=== PATIENT | female | born 1935 | race Caucasian/White ===

== ENCOUNTER 2020-11-23 17:04 | Inpatient (IN) | payer MEDICARE ==
[2020-11-23] MEDS: Atorvastatin Calcium 10 MG TAB PO SCH (21:02)
[2020-11-23] MEDS: Apixaban 5 MG TAB PO SCH (21:02)
[2020-11-24 06:13] LABS: Anion Gap 12 mmol/L (10-20); BUN (Urea Nitrogen) 14 mg/dL (9.8-20.1); Calc. Creatinine Clearance 77 mL/min (70-130); Calcium 9.2 mg/dL (7.8-10.44); Carbon Dioxide 26 mmol/L (23-31); Chloride 100 mmol/L (98-107); Glucose 90 mg/dL (83-110); Potassium 4.5 mmol/L (3.5-5.1); Sodium 133 mmol/L (136-145)
[2020-11-24 06:28] LABS: #Basophils 0.1 thou/uL (0.0-0.2); #Eosinphils 0.2 thou/uL (0.0-0.7); #Lymphocytes 1.2 thou/uL (1.20-3.40); #Monocytes 0.7 thou/uL (0.11-0.59); %Basophils 1.5 % (0.0-1.0); %Eosinophils 1.8 % (0.0-10.0); %Lymphocytes 13.2 % (21.0-51.0); %Monocytes 7.2 % (0.0-10.0); %Neutrophils 76.3 % (42.0-75.0); Hemoglobin 12.5 g/dL (12.0-16.0); Mean Corpuscular HGB CONC 33.1 g/dL (32.0-36.0); Mean Corpuscular Hemoglobin 29.8 pg (27.0-31.0); Mean Platelet Volume 6.3 fL (7.4-10.4); Platelet Count 416 thou/uL (130-400); RBC Distribution Width 12.6 % (11.5-14.5); Red Blood Cell (RBC) Count 4.19 mill/uL (4.20-5.40); White Blood Cell (WBC) Count 9.2 thou/uL (4.8-10.8)
[2020-11-24] MEDS: Apixaban 5 MG TAB PO SCH ×2 (08:46→21:20)
[2020-11-24] MEDS: Cholecalciferol 1,000 UNITS (25 MCG) TAB PO SCH (08:47)
[2020-11-24] MEDS: Lisinopril 10 MG TAB PO SCH (08:47)
[2020-11-24] MEDS: Atorvastatin Calcium 10 MG TAB PO SCH (21:20)
[2020-11-25 05:42] LABS: Hemoglobin 12.5 g/dL (12.0-16.0); Platelet Count 381 thou/uL (130-400)
[2020-11-25] MEDS: Cholecalciferol 1,000 UNITS (25 MCG) TAB PO SCH (08:23)
[2020-11-25] MEDS: Apixaban 5 MG TAB PO SCH ×2 (08:24→21:14)
[2020-11-25] MEDS: Lisinopril 10 MG TAB PO SCH (08:25)
[2020-11-25] MEDS: Atorvastatin Calcium 10 MG TAB PO SCH (21:14)
[2020-11-26] MEDS: Cholecalciferol 1,000 UNITS (25 MCG) TAB PO SCH (08:40)
[2020-11-26] MEDS: Lisinopril 10 MG TAB PO SCH (08:41)
[2020-11-26] MEDS: Apixaban 5 MG TAB PO SCH ×2 (08:41→20:54)
[2020-11-26] MEDS: Atorvastatin Calcium 10 MG TAB PO SCH (20:53)
[2020-11-27] MEDS: Cholecalciferol 1,000 UNITS (25 MCG) TAB PO SCH (09:05)
[2020-11-27] MEDS: Apixaban 5 MG TAB PO SCH ×2 (09:06→20:43)
[2020-11-27] MEDS: Lisinopril 10 MG TAB PO SCH (09:06)
[2020-11-27] MEDS: Atorvastatin Calcium 10 MG TAB PO SCH (20:43)
[2020-11-28 05:44] LABS: Hemoglobin 12.8 g/dL (12.0-16.0); Platelet Count 307 thou/uL (130-400)
[2020-11-28] MEDS: Lisinopril 10 MG TAB PO SCH (09:47)
[2020-11-28] MEDS: Apixaban 5 MG TAB PO SCH ×2 (09:48→20:09)
[2020-11-28] MEDS: Cholecalciferol 1,000 UNITS (25 MCG) TAB PO SCH (09:48)
[2020-11-28] MEDS: Atorvastatin Calcium 10 MG TAB PO SCH (20:09)
[2020-11-29 05:44] LABS: #Basophils 0.1 thou/uL (0.0-0.2); #Eosinphils 0.2 thou/uL (0.0-0.7); #Lymphocytes 1.3 thou/uL (1.20-3.40); #Monocytes 0.5 thou/uL (0.11-0.59); #Neutrophils 4.3 thou/uL (1.40-6.50); %Basophils 1.8 % (0.0-1.0); %Lymphocytes 20.2 % (21.0-51.0); %Monocytes 8.4 % (0.0-10.0); %Neutrophils 66.6 % (42.0-75.0); Hemoglobin 12.7 g/dL (12.0-16.0); Mean Corpuscular HGB CONC 33.1 g/dL (32.0-36.0); Mean Corpuscular Hemoglobin 29.6 pg (27.0-31.0); Mean Corpuscular Volume 89.4 fL (78.0-98.0); Mean Platelet Volume 6.6 fL (7.4-10.4); Platelet Count 279 thou/uL (130-400); RBC Distribution Width 12.6 % (11.5-14.5); Red Blood Cell (RBC) Count 4.29 mill/uL (4.20-5.40); White Blood Cell (WBC) Count 6.4 thou/uL (4.8-10.8)
[2020-11-29 05:56] LABS: Anion Gap 11 mmol/L (10-20); BUN (Urea Nitrogen) 18 mg/dL (9.8-20.1); Calc. Creatinine Clearance 73 mL/min (70-130); Calcium 8.9 mg/dL (7.8-10.44); Carbon Dioxide 26 mmol/L (23-31); Chloride 101 mmol/L (98-107); Glucose 87 mg/dL (83-110); Potassium 4.3 mmol/L (3.5-5.1); Sodium 134 mmol/L (136-145)
[2020-11-29] MEDS: Cholecalciferol 1,000 UNITS (25 MCG) TAB PO SCH (09:11)
[2020-11-29] MEDS: Lisinopril 10 MG TAB PO SCH (09:11)
[2020-11-29] MEDS: Apixaban 5 MG TAB PO SCH ×2 (09:12→20:51)
[2020-11-29] MEDS: Atorvastatin Calcium 10 MG TAB PO SCH (20:51)
[2020-11-30] MEDS: Cholecalciferol 1,000 UNITS (25 MCG) TAB PO SCH (08:41)
[2020-11-30] MEDS: Apixaban 5 MG TAB PO SCH ×2 (08:41→20:46)
[2020-11-30] MEDS: Lisinopril 10 MG TAB PO SCH (08:42)
[2020-11-30] MEDS: Atorvastatin Calcium 10 MG TAB PO SCH (20:46)
[2020-12-01 05:20] LABS: Platelet Count 244 thou/uL (130-400)
[2020-12-01] MEDS: Apixaban 5 MG TAB PO SCH ×2 (09:04→20:50)
[2020-12-01] MEDS: Cholecalciferol 1,000 UNITS (25 MCG) TAB PO SCH (09:04)
[2020-12-01] MEDS: Lisinopril 10 MG TAB PO SCH (09:04)
[2020-12-01] MEDS: Atorvastatin Calcium 10 MG TAB PO SCH (20:50)
[2020-12-02] MEDS: Apixaban 5 MG TAB PO SCH ×2 (09:22→20:22)
[2020-12-02] MEDS: Lisinopril 10 MG TAB PO SCH (09:23)
[2020-12-02] MEDS: Cholecalciferol 1,000 UNITS (25 MCG) TAB PO SCH (09:23)
[2020-12-02] MEDS: Nystatin 500,000 UNITS/5 ML UDCUP SSW SCH ×2 (17:08→20:22)
[2020-12-02] MEDS: Atorvastatin Calcium 10 MG TAB PO SCH (20:22)
[2020-12-03] MEDS: Lisinopril 10 MG TAB PO SCH (09:35)
[2020-12-03] MEDS: Cholecalciferol 1,000 UNITS (25 MCG) TAB PO SCH (09:35)
[2020-12-03] MEDS: Apixaban 5 MG TAB PO SCH ×2 (09:35→21:13)
[2020-12-03] MEDS: Nystatin 500,000 UNITS/5 ML UDCUP SSW SCH ×4 (09:36→21:24)
[2020-12-03] MEDS: Atorvastatin Calcium 10 MG TAB PO SCH (21:13)
[2020-12-04] MEDS: Nystatin 500,000 UNITS/5 ML UDCUP SSW SCH ×4 (09:08→21:00)
[2020-12-04] MEDS: Cholecalciferol 1,000 UNITS (25 MCG) TAB PO SCH (09:08)
[2020-12-04] MEDS: Apixaban 5 MG TAB PO SCH ×2 (09:09→20:59)
[2020-12-04] MEDS: Lisinopril 10 MG TAB PO SCH (09:09)
[2020-12-04] MEDS: Senokot S 8.6-50 MG TAB PO PRN (09:16)
[2020-12-04] MEDS: Atorvastatin Calcium 10 MG TAB PO SCH (21:00)
[2020-12-05 05:25] LABS: #Basophils 0.1 thou/uL (0.0-0.2); #Eosinphils 0.5 thou/uL (0.0-0.7); #Lymphocytes 1.5 thou/uL (1.20-3.40); #Monocytes 0.7 thou/uL (0.11-0.59); #Neutrophils 4.7 thou/uL (1.40-6.50); %Basophils 1.3 % (0.0-1.0); %Eosinophils 6.8 % (0.0-10.0); %Lymphocytes 19.4 % (21.0-51.0); %Monocytes 9.4 % (0.0-10.0); %Neutrophils 63.1 % (42.0-75.0); Hemoglobin 12.8 g/dL (12.0-16.0); Mean Corpuscular HGB CONC 32.6 g/dL (32.0-36.0); Mean Corpuscular Volume 88.9 fL (78.0-98.0); Mean Platelet Volume 7.1 fL (7.4-10.4); Platelet Count 226 thou/uL (130-400); RBC Distribution Width 12.5 % (11.5-14.5); Red Blood Cell (RBC) Count 4.42 mill/uL (4.20-5.40); White Blood Cell (WBC) Count 7.5 thou/uL (4.8-10.8)
[2020-12-05 05:34] LABS: Anion Gap 12 mmol/L (10-20); BUN (Urea Nitrogen) 25 mg/dL (9.8-20.1); Calc. Creatinine Clearance 66 mL/min (70-130); Calcium 9.1 mg/dL (7.8-10.44); Carbon Dioxide 27 mmol/L (23-31); Chloride 102 mmol/L (98-107); Glucose 92 mg/dL (83-110); Potassium 4.4 mmol/L (3.5-5.1); Sodium 137 mmol/L (136-145)
[2020-12-05] MEDS: Nystatin 500,000 UNITS/5 ML UDCUP SSW SCH ×4 (08:47→20:55)
[2020-12-05] MEDS: Cholecalciferol 1,000 UNITS (25 MCG) TAB PO SCH (08:48)
[2020-12-05] MEDS: Senokot S 8.6-50 MG TAB PO PRN (08:48)
[2020-12-05] MEDS: Apixaban 5 MG TAB PO SCH ×2 (08:48→20:56)
[2020-12-05] MEDS: Lisinopril 10 MG TAB PO SCH (08:48)
[2020-12-05] MEDS: Atorvastatin Calcium 10 MG TAB PO SCH (20:56)
[2020-12-06] MEDS: Cholecalciferol 1,000 UNITS (25 MCG) TAB PO SCH (08:43)
[2020-12-06] MEDS: Lisinopril 10 MG TAB PO SCH (08:43)
[2020-12-06] MEDS: Apixaban 5 MG TAB PO SCH ×2 (08:43→21:01)
[2020-12-06] MEDS: Nystatin 500,000 UNITS/5 ML UDCUP SSW SCH ×4 (08:44→21:00)
[2020-12-06] MEDS: Atorvastatin Calcium 10 MG TAB PO SCH (21:01)
[2020-12-07 06:00] VITALS: BMI 26.9
[2020-12-07] MEDS: Lisinopril 10 MG TAB PO SCH (08:48)
[2020-12-07] MEDS: Apixaban 5 MG TAB PO SCH ×2 (08:48→21:00)
[2020-12-07] MEDS: Cholecalciferol 1,000 UNITS (25 MCG) TAB PO SCH (08:48)
[2020-12-07] MEDS: Nystatin 500,000 UNITS/5 ML UDCUP SSW SCH ×3 (08:49→17:37)
[2020-12-07] MEDS: Atorvastatin Calcium 10 MG TAB PO SCH (21:00)
[2020-12-08] MEDS: Cholecalciferol 1,000 UNITS (25 MCG) TAB PO SCH (09:17)
[2020-12-08] MEDS: Lisinopril 10 MG TAB PO SCH (09:19)
[2020-12-08] MEDS: Apixaban 5 MG TAB PO SCH ×2 (09:19→21:06)
[2020-12-08] MEDS: Atorvastatin Calcium 10 MG TAB PO SCH (21:06)
[2020-12-09] MEDS: Apixaban 5 MG TAB PO SCH ×2 (08:52→20:40)
[2020-12-09] MEDS: Lisinopril 10 MG TAB PO SCH (08:53)
[2020-12-09] MEDS: Cholecalciferol 1,000 UNITS (25 MCG) TAB PO SCH (08:53)
[2020-12-09] MEDS: Senokot S 8.6-50 MG TAB PO PRN (20:39)
[2020-12-09] MEDS: Atorvastatin Calcium 10 MG TAB PO SCH (20:40)
[2020-12-10 08:09] VITALS: TEMP 96.2
[2020-12-10] MEDS: Cholecalciferol 1,000 UNITS (25 MCG) TAB PO SCH (09:07)
[2020-12-10] MEDS: Senokot S 8.6-50 MG TAB PO PRN (09:08)
[2020-12-10] MEDS: Lisinopril 10 MG TAB PO SCH (09:10)
[2020-12-10] MEDS: Apixaban 5 MG TAB PO SCH (09:10)
[2020-12-10 12:59] VITALS: BP 107/65
== END 2020-12-10 14:12 | DRG 947 ==
LOC: NAV ACUTE 17:04
PROVIDERS: ADMIT Internal Medicine; ATTEND Internal Medicine
DX: R53.81 Other malaise (principal); J18.9 Pneumonia, unspecified organism; E87.1 Hypo-osmolality and hyponatremia; B37.0 Candidal stomatitis; I48.91 Unspecified atrial fibrillation; R19.7 Diarrhea, unspecified; I10 Essential (primary) hypertension; E78.5 Hyperlipidemia, unspecified; L89.151 Pressure ulcer of sacral region, stage 1; R41.89 Other symptoms and signs involving cognitive functions and awareness; H90.5 Unspecified sensorineural hearing loss; Z98.42 Cataract extraction status, left eye; Z98.41 Cataract extraction status, right eye; Z80.41 Family history of malignant neoplasm of ovary; Z80.0 Family history of malignant neoplasm of digestive organs; Z79.01 Long term (current) use of anticoagulants
CPT/HCPCS: 80048; 82565; 85014; 85018; 85025; 85049

== ENCOUNTER 2022-04-02 14:57 | Inpatient (IN) | payer MEDICARE ==
[2022-04-02] MEDS: Apixaban 5 MG TAB PO SCH (20:58)
[2022-04-02] MEDS: Atorvastatin Calcium 10 MG TAB PO SCH (20:58)
[2022-04-02] MEDS: Saccharomyces boulardii 250 MG CAP PO SCH (20:58)
[2022-04-02] MEDS: Metoprolol Tartrate 25 MG TAB PO SCH (20:59)
[2022-04-02] MEDS: Cyanocobalamin (Vitamin B-12) 1,000 MCG TAB PO SCH (20:59)
[2022-04-02] MEDS: Multivitamin W/ Minerals 1 TAB PO SCH (21:01)
[2022-04-02] MEDS: Folic Acid 1 MG TAB PO SCH (21:01)
[2022-04-02] MEDS ORDERED: Calcium Carbonate 500 MG ChewTAB PO PRN (21:25)
[2022-04-02] MEDS ORDERED: Senokot S 8.6-50 MG TAB PO PRN (21:25)
[2022-04-02] MEDS ORDERED: Bisacodyl 10 MG SUPP PR PRN (21:25)
[2022-04-02] MEDS ORDERED: Acetaminophen 650 MG Suppository PR PRN (21:25)
[2022-04-03] MEDS: Ciprofloxacin 500 MG TAB PO SCH ×2 (05:42→20:33)
[2022-04-03 06:52] LABS: ALT (SGPT) 26 U/L (8-55); AST (SGOT) 26 U/L (5-34); Albumin 2.6 g/dL (3.4-4.8); Alkaline Phosphatase 93 U/L (40-110); Anion Gap 12 mmol/L (10-20); BUN (Urea Nitrogen) 12 mg/dL (9.8-20.1); Bilirubin, Total 0.9 mg/dL (0.2-1.2); Calc. Creatinine Clearance 84 mL/min (70-130); Calcium 8.7 mg/dL (7.8-10.44); Carbon Dioxide 25 mmol/L (23-31); Chloride 105 mmol/L (98-107); Estimated GFR 85; Globulin 2.5 g/dL (2.4-3.5); Glucose 102 mg/dL (83-110); Potassium 3.9 mmol/L (3.5-5.1); Protein, Total 5.1 g/dL (5.8-8.1); Sodium 138 mmol/L (136-145)
[2022-04-03 07:19] LABS: #Basophils 0.1 thou/uL (0.0-0.2); #Eosinphils 0.4 thou/uL (0.0-0.7); #Lymphocytes 1.4 thou/uL (1.20-3.40); #Monocytes 0.9 thou/uL (0.11-0.59); #Neutrophils 6.6 thou/uL (1.40-6.50); %Eosinophils 4.6 % (0.0-10.0); %Monocytes 9.3 % (0.0-10.0); %Neutrophils 70.2 % (42.0-75.0); Hemoglobin 12.4 g/dL (12.0-16.0); Mean Corpuscular HGB CONC 31.1 g/dL (32.0-36.0); Mean Corpuscular Hemoglobin 29.3 pg (27.0-31.0); Mean Corpuscular Volume 94.3 fL (78.0-98.0); Platelet Count 246 thou/uL (130-400); RBC Distribution Width 12.4 % (11.5-14.5); Red Blood Cell (RBC) Count 4.22 mill/uL (4.20-5.40); White Blood Cell (WBC) Count 9.4 thou/uL (4.8-10.8)
[2022-04-03] MEDS: Cholecalciferol 1,000 UNITS (25 MCG) TAB PO SCH (09:20)
[2022-04-03] MEDS: Acetaminophen 325 MG TAB PO PRN (09:21)
[2022-04-03] MEDS: Metoprolol Tartrate 25 MG TAB PO SCH ×2 (09:23→20:33)
[2022-04-03] MEDS: Apixaban 5 MG TAB PO SCH ×2 (09:24→20:33)
[2022-04-03] MEDS: Saccharomyces boulardii 250 MG CAP PO SCH (20:33)
[2022-04-03] MEDS: Folic Acid 1 MG TAB PO SCH (20:36)
[2022-04-03] MEDS: Atorvastatin Calcium 10 MG TAB PO SCH (20:36)
[2022-04-03] MEDS: Multivitamin W/ Minerals 1 TAB PO SCH (20:36)
[2022-04-03] MEDS: Cyanocobalamin (Vitamin B-12) 1,000 MCG TAB PO SCH (20:36)
[2022-04-04] MEDS: Ciprofloxacin 500 MG TAB PO SCH ×2 (06:09→20:25)
[2022-04-04] MEDS: Cholecalciferol 1,000 UNITS (25 MCG) TAB PO SCH (08:21)
[2022-04-04] MEDS: Metoprolol Tartrate 25 MG TAB PO SCH ×2 (08:21→20:24)
[2022-04-04] MEDS: Apixaban 5 MG TAB PO SCH ×2 (08:24→20:25)
[2022-04-04] MEDS: Saccharomyces boulardii 250 MG CAP PO SCH (20:24)
[2022-04-04] MEDS: Cyanocobalamin (Vitamin B-12) 1,000 MCG TAB PO SCH (20:25)
[2022-04-04] MEDS: Atorvastatin Calcium 10 MG TAB PO SCH (20:25)
[2022-04-04] MEDS: Folic Acid 1 MG TAB PO SCH (20:25)
[2022-04-04] MEDS: Multivitamin W/ Minerals 1 TAB PO SCH (20:26)
[2022-04-05] MEDS: Ciprofloxacin 500 MG TAB PO SCH ×2 (05:45→20:12)
[2022-04-05 06:36] LABS: #Basophils 0.1 thou/uL (0.0-0.2); #Eosinphils 0.3 thou/uL (0.0-0.7); #Lymphocytes 1.5 thou/uL (1.20-3.40); #Monocytes 0.7 thou/uL (0.11-0.59); #Neutrophils 6.5 thou/uL (1.40-6.50); %Eosinophils 3.9 % (0.0-10.0); %Lymphocytes 16.3 % (21.0-51.0); %Monocytes 7.5 % (0.0-10.0); %Neutrophils 71.4 % (42.0-75.0); Hemoglobin 12.7 g/dL (12.0-16.0); Mean Corpuscular HGB CONC 31.1 g/dL (32.0-36.0); Mean Corpuscular Hemoglobin 29.3 pg (27.0-31.0); Mean Corpuscular Volume 94.4 fL (78.0-98.0); Platelet Count 291 thou/uL (130-400); Red Blood Cell (RBC) Count 4.34 mill/uL (4.20-5.40); White Blood Cell (WBC) Count 9.1 thou/uL (4.8-10.8)
[2022-04-05 07:01] LABS: Anion Gap 14 mmol/L (10-20); BUN (Urea Nitrogen) 11 mg/dL (9.8-20.1); Calc. Creatinine Clearance 82 mL/min (70-130); Calcium 8.9 mg/dL (7.8-10.44); Carbon Dioxide 24 mmol/L (23-31); Chloride 102 mmol/L (98-107); Estimated GFR 83; Glucose 91 mg/dL (83-110); Sodium 136 mmol/L (136-145)
[2022-04-05] MEDS: Apixaban 5 MG TAB PO SCH ×2 (08:37→20:11)
[2022-04-05] MEDS: Cholecalciferol 1,000 UNITS (25 MCG) TAB PO SCH (08:37)
[2022-04-05] MEDS: Metoprolol Tartrate 25 MG TAB PO SCH ×2 (08:38→20:11)
[2022-04-05] MEDS: Atorvastatin Calcium 10 MG TAB PO SCH (20:11)
[2022-04-05] MEDS: Multivitamin W/ Minerals 1 TAB PO SCH (20:11)
[2022-04-05] MEDS: Cyanocobalamin (Vitamin B-12) 1,000 MCG TAB PO SCH (20:11)
[2022-04-05] MEDS: Folic Acid 1 MG TAB PO SCH (20:11)
[2022-04-05] MEDS: Saccharomyces boulardii 250 MG CAP PO SCH (20:12)
[2022-04-06] MEDS: Ciprofloxacin 500 MG TAB PO SCH ×2 (06:12→20:46)
[2022-04-06] MEDS: Apixaban 5 MG TAB PO SCH ×2 (08:25→20:46)
[2022-04-06] MEDS: Cholecalciferol 1,000 UNITS (25 MCG) TAB PO SCH (08:25)
[2022-04-06] MEDS: Metoprolol Tartrate 25 MG TAB PO SCH ×2 (08:25→20:45)
[2022-04-06] MEDS: Saccharomyces boulardii 250 MG CAP PO SCH (20:45)
[2022-04-06] MEDS: Folic Acid 1 MG TAB PO SCH (20:45)
[2022-04-06] MEDS: Multivitamin W/ Minerals 1 TAB PO SCH (20:45)
[2022-04-06] MEDS: Cyanocobalamin (Vitamin B-12) 1,000 MCG TAB PO SCH (20:45)
[2022-04-06] MEDS: Atorvastatin Calcium 10 MG TAB PO SCH (20:46)
[2022-04-07] MEDS: Ciprofloxacin 500 MG TAB PO SCH ×2 (05:20→20:40)
[2022-04-07] MEDS: Cholecalciferol 1,000 UNITS (25 MCG) TAB PO SCH (08:40)
[2022-04-07] MEDS: Metoprolol Tartrate 25 MG TAB PO SCH ×2 (08:40→20:40)
[2022-04-07] MEDS: Apixaban 5 MG TAB PO SCH ×2 (08:50→20:40)
[2022-04-07] MEDS: Saccharomyces boulardii 250 MG CAP PO SCH (20:40)
[2022-04-07] MEDS: Folic Acid 1 MG TAB PO SCH (20:40)
[2022-04-07] MEDS: Cyanocobalamin (Vitamin B-12) 1,000 MCG TAB PO SCH (20:40)
[2022-04-07] MEDS: Atorvastatin Calcium 10 MG TAB PO SCH (20:40)
[2022-04-07] MEDS: Multivitamin W/ Minerals 1 TAB PO SCH (20:40)
[2022-04-08] MEDS: Ciprofloxacin 500 MG TAB PO SCH ×2 (05:44→20:19)
[2022-04-08 05:51] LABS: #Basophils 0.1 thou/uL (0.0-0.2); #Eosinphils 0.3 thou/uL (0.0-0.7); #Lymphocytes 1.7 thou/uL (1.20-3.40); #Monocytes 0.6 thou/uL (0.11-0.59); #Neutrophils 6.6 thou/uL (1.40-6.50); %Basophils 0.8 % (0.0-1.0); %Eosinophils 3.2 % (0.0-10.0); %Lymphocytes 18.1 % (21.0-51.0); %Monocytes 6.6 % (0.0-10.0); %Neutrophils 71.3 % (42.0-75.0); Mean Corpuscular HGB CONC 32.1 g/dL (32.0-36.0); Mean Corpuscular Hemoglobin 29.8 pg (27.0-31.0); Mean Corpuscular Volume 92.6 fL (78.0-98.0); Mean Platelet Volume 7.1 fL (7.4-10.4); Platelet Count 314 thou/uL (130-400); RBC Distribution Width 11.9 % (11.5-14.5); Red Blood Cell (RBC) Count 4.36 mill/uL (4.20-5.40); White Blood Cell (WBC) Count 9.2 thou/uL (4.8-10.8)
[2022-04-08 06:12] LABS: Anion Gap 12 mmol/L (10-20); BUN (Urea Nitrogen) 14 mg/dL (9.8-20.1); Calc. Creatinine Clearance 72 mL/min (70-130); Calcium 9.1 mg/dL (7.8-10.44); Carbon Dioxide 24 mmol/L (23-31); Chloride 103 mmol/L (98-107); Estimated GFR 72; Glucose 89 mg/dL (83-110); Potassium 4.2 mmol/L (3.5-5.1); Sodium 135 mmol/L (136-145)
[2022-04-08] MEDS: Apixaban 5 MG TAB PO SCH ×2 (08:22→20:19)
[2022-04-08] MEDS: Metoprolol Tartrate 25 MG TAB PO SCH ×2 (08:22→20:19)
[2022-04-08] MEDS: Cholecalciferol 1,000 UNITS (25 MCG) TAB PO SCH (08:22)
[2022-04-08] MEDS: Cyanocobalamin (Vitamin B-12) 1,000 MCG TAB PO SCH (20:18)
[2022-04-08] MEDS: Saccharomyces boulardii 250 MG CAP PO SCH (20:18)
[2022-04-08] MEDS: Folic Acid 1 MG TAB PO SCH (20:18)
[2022-04-08] MEDS: Multivitamin W/ Minerals 1 TAB PO SCH (20:18)
[2022-04-08] MEDS: Atorvastatin Calcium 10 MG TAB PO SCH (20:19)
[2022-04-09] MEDS: Ciprofloxacin 500 MG TAB PO SCH ×2 (05:54→20:08)
[2022-04-09] MEDS: Metoprolol Tartrate 25 MG TAB PO SCH ×2 (08:19→20:08)
[2022-04-09] MEDS: Apixaban 5 MG TAB PO SCH ×2 (08:19→20:09)
[2022-04-09] MEDS: Cholecalciferol 1,000 UNITS (25 MCG) TAB PO SCH (08:20)
[2022-04-09] MEDS: Bisacodyl 5 MG TAB PO PRN (13:53)
[2022-04-09] MEDS: Multivitamin W/ Minerals 1 TAB PO SCH (20:08)
[2022-04-09] MEDS: Cyanocobalamin (Vitamin B-12) 1,000 MCG TAB PO SCH (20:08)
[2022-04-09] MEDS: Saccharomyces boulardii 250 MG CAP PO SCH (20:08)
[2022-04-09] MEDS: Folic Acid 1 MG TAB PO SCH (20:08)
[2022-04-09] MEDS: Atorvastatin Calcium 10 MG TAB PO SCH (20:08)
[2022-04-10] MEDS: Ciprofloxacin 500 MG TAB PO SCH (05:03)
[2022-04-10] MEDS: Cholecalciferol 1,000 UNITS (25 MCG) TAB PO SCH (08:25)
[2022-04-10] MEDS: Apixaban 5 MG TAB PO SCH ×2 (08:25→20:18)
[2022-04-10] MEDS: Bisacodyl 5 MG TAB PO PRN (08:25)
[2022-04-10] MEDS: Metoprolol Tartrate 25 MG TAB PO SCH ×2 (08:26→20:17)
[2022-04-10] MEDS: Multivitamin W/ Minerals 1 TAB PO SCH (20:17)
[2022-04-10] MEDS: Cyanocobalamin (Vitamin B-12) 1,000 MCG TAB PO SCH (20:17)
[2022-04-10] MEDS: Folic Acid 1 MG TAB PO SCH (20:18)
[2022-04-10] MEDS: Saccharomyces boulardii 250 MG CAP PO SCH (20:18)
[2022-04-10] MEDS: Atorvastatin Calcium 10 MG TAB PO SCH (20:18)
[2022-04-11 05:51] LABS: #Basophils 0.1 thou/uL (0.0-0.2); #Eosinphils 0.2 thou/uL (0.0-0.7); #Lymphocytes 1.4 thou/uL (1.20-3.40); #Monocytes 0.6 thou/uL (0.11-0.59); #Neutrophils 5.5 thou/uL (1.40-6.50); %Basophils 1.5 % (0.0-1.0); %Eosinophils 2.7 % (0.0-10.0); %Lymphocytes 17.9 % (21.0-51.0); %Monocytes 7.7 % (0.0-10.0); %Neutrophils 70.2 % (42.0-75.0); Hemoglobin 12.9 g/dL (12.0-16.0); Mean Corpuscular HGB CONC 31.1 g/dL (32.0-36.0); Mean Corpuscular Hemoglobin 29.3 pg (27.0-31.0); Mean Corpuscular Volume 94.1 fL (78.0-98.0); Mean Platelet Volume 7.6 fL (7.4-10.4); Platelet Count 311 thou/uL (130-400); RBC Distribution Width 12.3 % (11.5-14.5); White Blood Cell (WBC) Count 7.9 thou/uL (4.8-10.8)
[2022-04-11 06:06] LABS: Anion Gap 11 mmol/L (10-20); BUN (Urea Nitrogen) 15 mg/dL (9.8-20.1); Calc. Creatinine Clearance 67 mL/min (70-130); Calcium 9.2 mg/dL (7.8-10.44); Carbon Dioxide 26 mmol/L (23-31); Chloride 106 mmol/L (98-107); Estimated GFR 73; Glucose 91 mg/dL (83-110); Sodium 139 mmol/L (136-145)
[2022-04-11] MEDS: Cholecalciferol 1,000 UNITS (25 MCG) TAB PO SCH (08:18)
[2022-04-11] MEDS: Apixaban 5 MG TAB PO SCH ×2 (08:19→20:14)
[2022-04-11] MEDS: Metoprolol Tartrate 25 MG TAB PO SCH ×2 (08:19→20:14)
[2022-04-11] MEDS: Polyethylene Glycol 3350 17 GM Packet PO SCH (08:35)
[2022-04-11] MEDS: Saccharomyces boulardii 250 MG CAP PO SCH (20:14)
[2022-04-11] MEDS: Atorvastatin Calcium 10 MG TAB PO SCH (20:14)
[2022-04-11] MEDS: Folic Acid 1 MG TAB PO SCH (20:14)
[2022-04-11] MEDS: Multivitamin W/ Minerals 1 TAB PO SCH (20:14)
[2022-04-11] MEDS: Cyanocobalamin (Vitamin B-12) 1,000 MCG TAB PO SCH (20:14)
[2022-04-12] MEDS: Cholecalciferol 1,000 UNITS (25 MCG) TAB PO SCH (08:53)
[2022-04-12] MEDS: Metoprolol Tartrate 25 MG TAB PO SCH ×2 (08:54→20:17)
[2022-04-12] MEDS: Polyethylene Glycol 3350 17 GM Packet PO SCH (08:55)
[2022-04-12] MEDS: Apixaban 5 MG TAB PO SCH ×2 (08:55→20:18)
[2022-04-12] MEDS: Cyanocobalamin (Vitamin B-12) 1,000 MCG TAB PO SCH (20:17)
[2022-04-12] MEDS: Atorvastatin Calcium 10 MG TAB PO SCH (20:17)
[2022-04-12] MEDS: Multivitamin W/ Minerals 1 TAB PO SCH (20:17)
[2022-04-12] MEDS: Saccharomyces boulardii 250 MG CAP PO SCH (20:17)
[2022-04-12] MEDS: Folic Acid 1 MG TAB PO SCH (20:18)
[2022-04-13] MEDS: Metoprolol Tartrate 25 MG TAB PO SCH ×2 (09:22→21:00)
[2022-04-13] MEDS: Cholecalciferol 1,000 UNITS (25 MCG) TAB PO SCH (09:22)
[2022-04-13] MEDS: Apixaban 5 MG TAB PO SCH ×2 (09:24→21:00)
[2022-04-13] MEDS: Polyethylene Glycol 3350 17 GM Packet PO SCH (09:25)
[2022-04-13 16:42] VITALS: BMI 27.7
[2022-04-13] MEDS: Acetaminophen 325 MG TAB PO PRN (19:11)
[2022-04-13] MEDS: Multivitamin W/ Minerals 1 TAB PO SCH (21:00)
[2022-04-13] MEDS: Folic Acid 1 MG TAB PO SCH (21:00)
[2022-04-13] MEDS: Atorvastatin Calcium 10 MG TAB PO SCH (21:00)
[2022-04-13] MEDS: Cyanocobalamin (Vitamin B-12) 1,000 MCG TAB PO SCH (21:00)
[2022-04-13] MEDS: Saccharomyces boulardii 250 MG CAP PO SCH (21:01)
[2022-04-14 07:20] LABS: #Basophils 0.1 thou/uL (0.0-0.2); #Eosinphils 0.3 thou/uL (0.0-0.7); #Lymphocytes 1.6 thou/uL (1.20-3.40); #Monocytes 0.6 thou/uL (0.11-0.59); #Neutrophils 4.4 thou/uL (1.40-6.50); %Basophils 1.6 % (0.0-1.0); %Eosinophils 4.3 % (0.0-10.0); %Monocytes 8.1 % (0.0-10.0); Hemoglobin 12.4 g/dL (12.0-16.0); Mean Corpuscular HGB CONC 31.1 g/dL (32.0-36.0); Mean Corpuscular Hemoglobin 29.3 pg (27.0-31.0); Mean Corpuscular Volume 94.3 fL (78.0-98.0); Mean Platelet Volume 7.8 fL (7.4-10.4); Platelet Count 266 thou/uL (130-400); RBC Distribution Width 12.2 % (11.5-14.5); Red Blood Cell (RBC) Count 4.23 mill/uL (4.20-5.40); White Blood Cell (WBC) Count 6.9 thou/uL (4.8-10.8)
[2022-04-14 07:36] LABS: Anion Gap 14 mmol/L (10-20); BUN (Urea Nitrogen) 13 mg/dL (9.8-20.1); Calc. Creatinine Clearance 71 mL/min (70-130); Calcium 8.8 mg/dL (7.8-10.44); Carbon Dioxide 25 mmol/L (23-31); Chloride 105 mmol/L (98-107); Estimated GFR 79; Glucose 85 mg/dL (83-110); Sodium 140 mmol/L (136-145)
[2022-04-14] MEDS: Polyethylene Glycol 3350 17 GM Packet PO SCH (09:51)
[2022-04-14] MEDS: Metoprolol Tartrate 25 MG TAB PO SCH ×2 (09:51→21:16)
[2022-04-14] MEDS: Apixaban 5 MG TAB PO SCH ×2 (09:52→21:16)
[2022-04-14] MEDS: Cholecalciferol 1,000 UNITS (25 MCG) TAB PO SCH (09:52)
[2022-04-14] MEDS: Multivitamin W/ Minerals 1 TAB PO SCH (21:15)
[2022-04-14] MEDS: Cyanocobalamin (Vitamin B-12) 1,000 MCG TAB PO SCH (21:16)
[2022-04-14] MEDS: Folic Acid 1 MG TAB PO SCH (21:16)
[2022-04-14] MEDS: Atorvastatin Calcium 10 MG TAB PO SCH (21:16)
[2022-04-14] MEDS: Saccharomyces boulardii 250 MG CAP PO SCH (21:16)
[2022-04-15] MEDS: Polyethylene Glycol 3350 17 GM Packet PO SCH (08:53)
[2022-04-15] MEDS: Metoprolol Tartrate 25 MG TAB PO SCH ×2 (08:53→20:44)
[2022-04-15] MEDS: Cholecalciferol 1,000 UNITS (25 MCG) TAB PO SCH (08:54)
[2022-04-15] MEDS: Apixaban 5 MG TAB PO SCH ×2 (08:55→20:45)
[2022-04-15] MEDS: Folic Acid 1 MG TAB PO SCH (20:45)
[2022-04-15] MEDS: Saccharomyces boulardii 250 MG CAP PO SCH (20:45)
[2022-04-15] MEDS: Cyanocobalamin (Vitamin B-12) 1,000 MCG TAB PO SCH (20:45)
[2022-04-15] MEDS: Multivitamin W/ Minerals 1 TAB PO SCH (20:45)
[2022-04-15] MEDS: Atorvastatin Calcium 10 MG TAB PO SCH (20:45)
[2022-04-16 08:24] VITALS: BP 127/70; TEMP 97.9
[2022-04-16] MEDS: Cholecalciferol 1,000 UNITS (25 MCG) TAB PO SCH (08:31)
[2022-04-16] MEDS: Polyethylene Glycol 3350 17 GM Packet PO SCH (08:31)
[2022-04-16] MEDS: Apixaban 5 MG TAB PO SCH (08:32)
[2022-04-16] MEDS: Metoprolol Tartrate 25 MG TAB PO SCH (08:32)
== END 2022-04-16 13:30 | disposition home health service (06) | DRG 690 ==
LOC: NAV ACUTE 18:28
PROVIDERS: ADMIT Family Medicine; ATTEND Family Medicine
DX: N30.00 Acute cystitis without hematuria (principal); R78.81 Bacteremia; Z20.822 Contact with and (suspected) exposure to COVID-19; B96.20 Unspecified Escherichia coli [E. coli] as the cause of diseases classified elsewhere; I10 Essential (primary) hypertension; H91.90 Unspecified hearing loss, unspecified ear; R53.81 Other malaise; R53.1 Weakness; K59.00 Constipation, unspecified; E78.2 Mixed hyperlipidemia; I48.0 Paroxysmal atrial fibrillation; Z79.899 Other long term (current) drug therapy; Z99.3 Dependence on wheelchair
CPT/HCPCS: 36415; 80048; 80053; 85025; 87040; U0003; U0005

== ENCOUNTER 2024-11-22 11:15 | Emergency (ER) | payer MEDICARE ==
[2024-11-22] MEDS ORDERED: Boostrix 0.5 ML (Tdap) VIAL (>/=7 yrs of age) ONE (11:35)
[2024-11-22] MEDS ORDERED: Amoxicillin/Potassium Clav 875 MG TAB ONE (11:35)
[2024-11-22] MEDS ORDERED: traMADol HCl 50 MG TAB ONE (11:35)
== END 2024-11-22 12:05 | disposition home or self-care (01) ==
LOC: NAV ERS 11:15
DX: L03.114 Cellulitis of left upper limb (principal); Z23 Encounter for immunization; I48.91 Unspecified atrial fibrillation; I10 Essential (primary) hypertension; K21.9 Gastro-esophageal reflux disease without esophagitis; Z79.899 Other long term (current) drug therapy; Z79.01 Long term (current) use of anticoagulants; W54.0XXA Bitten by dog, initial encounter
CPT/HCPCS: 87070; 87205; 90471; 90715